=== PATIENT | female | born 1980 | race Caucasian/White ===

== ENCOUNTER 2017-03-28 07:10 | Emergency (ER) | payer OTHER ==
--- NOTE | ~2017-03-28 | CT2 ---
[facility] A Service of [facility] RADIOLOGY TEXT RESULTS PATIENT: AUREA CEDILLO LOCATION: [facility] : 78 UNIT #: [id number] AGE: [address]: Denia Pimentel SEX: F ORDER DR: [id number] [facility]. [place], [place] [address] [id number] E MR#: [id number] Acc #: [id number] NAME: AUREA CEDILLO : 1980 SEX: F STUDY DATE/TIME: 03/28/2017 9:22 UNIT: [facility] ROOM: STUDY DESCRIPTION: CT Abd and Pelv W Cont Attending Physician: Denia Pimentel Pa-C Ordering Physician: Ed Suresh Sarabia M.D. Primary Care Physician: Primary Care Physician No MEDICAL IMAGING REPORT This report is preliminary unless electronic signature is present EXAM CT abdomen and pelvis with contrast HISTORY Right lower quadrant pain onset today TECHNIQUE Axial images performed through the abdomen and pelvis following IV and oral contrast. Multiplanar reconstructed images reviewed at a workstation. This CT exam was performed with one or more of the following radiation dose reduction techniques: automatic exposure control, adjustment of mA and/or kV according to patient size, and iterative reconstruction. FINDINGS Abdomen: Lung bases unremarkable. Liver, spleen, gallbladder, pancreas and adrenal glands unremarkable. Multi focal scarring noted in the left kidney may be related to prior infection. Visualized GI tract unremarkable. Retroperitoneum appears normal. 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 Pelvis: Bladder, uterus and adnexa appear normal. Osseous structures unremarkable. Postsurgical changes are noted from prior gastric surgery. The patient has apparently undergone a sub total gastrectomy. There is a small fat-containing umbilical hernia. Facet arthropathy noted on the left at the 5-1 level. Generalized obesity. IMPRESSION 1. No acute intraabdominal or intrapelvic pathology identified. In particular, the appendix is not clearly seen but no inflammatory changes in the right lower quadrant. No evidence of renal stone disease. 2. Focal scarring left kidney may be related to prior reflux or STS. [facility] A Service of [facility] RADIOLOGY TEXT RESULTS PATIENT: AUREA CEDILLO LOCATION: [facility] : 78 UNIT #: [id number] AGE: [address]: Denia Pimentel SEX: F ORDER DR: infection. 3. Postsurgical changes suggesting a partial gastrectomy. Dictated by... Lexie Diallo M.D. THIS IS AN ELECTRONICALLY VERIFIED REPORT Lexie Diallo M.D. at 03/29/2017 7:28 AM ALBERT/hugo TD: 03/28/2017 14:26 JOB #: [id number] MEDICAL IMAGING REPORT Page 1 of 1 COPY
--- NOTE | ~2017-03-28 | EKG ---
PATIENT: AUREA CEDILLO UNIT #: [id number] Ventricular Rate: 41 BPM Atrial Rate: 41 BPM P-R Interval: 136 ms QRS Duration: 100 ms Q-T Interval: 498 ms QTC Calculation(Bezet): 410 ms P [place]: 33 degrees Calculated R [place]: 6 degrees Calculated T [place]: -8 degrees Diagnosis Line: Marked sinus bradycardia Diagnosis Line: ST and T wave abnormality, consider inferior Diagnosis Line: ischemia Diagnosis Line: Abnormal ECG Diagnosis Line: No previous ECGs available Diagnosis Line: Confirmed by SHANKAR CALVILLO MD ([id number]) on Diagnosis Line: 03/30/2017 7:27:57 AM INTERPRETING MD: RAJINDER GRAHAM
[2017-03-28 08:04] LABS: BASOPHIL# 0.1 X10e3 (0-0.3); BASOPHIL% 1.2 % (0-2.5); EOSINOPHIL# 0.1 X10e3 (0-0.7); EOSINOPHIL% 1.6 % (0.0-7.0); HEMATOCRIT 35.5 % (35.0-45.0); HEMOGLOBIN 11.8 gm/dL (12.0-16.0); LYMPHOCYTE# 1.5 X10e3 (1.0-3.5); LYMPHOCYTE% 18.7 % (17.0-45.0); MEAN CELL VOLUME 87.7 FL (83-96); MEAN CORPUSCULAR HEMOGLOBIN 29.1 PG (28-34); MEAN CORPUSCULAR HGB CONC 33.2 g/dL (30-36); MEAN PLATELET VOLUME 9.2 FL (6.5-11.5); MONOCYTE# 0.5 X10e3 (0-1.0); MONOCYTE% 6.4 % (3.0-12.0); NEUTROPHIL# 5.7 X10e3 (1.5-7.1); NEUTROPHIL% 72.1 % (40-75); PLATELET COUNT 196 X10e3 (140-420); RED BLOOD COUNT 4.05 X10e (3.90-5.30); RED CELL DISTRIBUTION WIDTH 14.9 % (11.0-15.5)
[2017-03-28 08:07] LABS: DIFF IND NO
[2017-03-28 08:25] LABS: URINE SOURCE CLEAN CATCH
[2017-03-28 08:28] LABS: ALBUMIN SERUM 3.9 g/dL (3.5-5.0); BILIRUBIN, DIRECT 0.1 mg/dL (0.0-0.2); BILIRUBIN,INDIRECT 0.9 mg/dL (0.0-0.9); CALCIUM SERUM 8.8 mg/dL (8.4-10.2); GLOM FILT RATE Estimated 71.4 mL/min (>60); POTASSIUM 3.1 mmol/L (3.5-5.1); PROTEIN TOTAL SERUM 7.8 g/dL (6.0-8.3)
[2017-03-28 08:35] LABS: URINE APPEARANCE CLOUDY; URINE BILIRUBIN NEG (NEG); URINE BLOOD NEG (NEG); URINE COLOR YELLOW; URINE GLUCOSE NEG (NEG); URINE KETONE TRACE (NEG); URINE LEUKOCYTE ESTERASE 3+ (NEG); URINE NITRATE NEG (NEG); URINE PH 5.5 (5-8); URINE PROTEIN NEG (NEG); URINE SPECIFIC GRAVITY 1.014 (1.003-1.035); URINE UROBILINOGEN 0.2 MG/DL (NEG)
[2017-03-28 08:37] LABS: CULTURE INDICATED? YES; URINE BACTERIA AUWI 1+ (NEGATIVE); UWBCS1 AUWI 25-50 (0-5)
[2017-03-28 08:53] LABS: URINE SQUAMOUS EPITHELIAL CELL MODERATE /[HPF]
[2017-03-30 00:47] LABS: CHLAMYDIA TRACH Not Detected (Not Detected); N GONOR Not Detected (Not Detected)
== END 2017-03-28 11:37 | disposition home or self-care (01) ==
LOC: CED 07:10
PROVIDERS: Physician Assistant
DX: N39.0 Urinary tract infection, site not specified (principal); I10 Essential (primary) hypertension; Z98.890 Other specified postprocedural states
CPT/HCPCS: 36415; 74177; 80048; 80076; 81003; 83690; 84703; 85025; 87086; 87220; 87491; 87591; 87808; 87905; 93005; 96361; 96374; 96375; 99284; J2270; J2405; Q9967